=== PATIENT | male | born 1955 | race Caucasian/White ===

== ENCOUNTER → 2016-12-03 | Outpatient (CLI) | payer OTHER ==
--- NOTE | 2016-12-03 12:39 | DX ---
Video Esophagram With Speech Therapy at 1128 hours History: Dysphagia. Technique: With the patient in the sitting lateral position, the speech therapist administered barium -coated puree, thick liquids, thin liquids, solid, and barium pill while video fluoroscopic monitorin g was performed. Fluoroscopy time: 1.2 minutes. 4.1 mGy Findings: No aspiration or penetration with thin liquids, solids, liquids or barium pill. Normal orop haryngeal motility. No subglottic narrowing. Impression: 1. Normal video esophagram. 2. Please see speech therapist report and recommendations.
== END ==
PROVIDERS: ATTEND Otolaryngology
DX: R13.10 Dysphagia, unspecified (principal); R09.89 Other specified symptoms and signs involving the circulatory and respiratory systems
CPT/HCPCS: 92611-GN

== ENCOUNTER → 2017-08-05 | Outpatient (CLI) | payer OTHER ==
[~2017-08-05] MED LIST: IOPAMIDOL (ISOVUE-300) 100 ML BTL ONE
== END ==
LOC: FIMAGING 13:26
PROVIDERS: ATTEND Family Medicine
DX: S42.019A Nondisplaced fracture of sternal end of unspecified clavicle, initial encounter for closed fracture (principal); N28.1 Cyst of kidney, acquired; E04.1 Nontoxic single thyroid nodule
CPT/HCPCS: Q9967

== ENCOUNTER → 2017-08-15 | Outpatient (CLI) | payer OTHER | LOC: FIMAGING 11:44 | PROVIDERS: ATTEND Family Medicine | DX: E04.1 Nontoxic single thyroid nodule (principal); N28.1 Cyst of kidney, acquired ==